=== PATIENT | female | born 1975 | race Native Hawaiian/Other Pacific Islander ===

== ENCOUNTER 2016-07-19 15:27 | Outpatient (CLI) | payer OTHER | END 2016-07-19 22:07 | disposition home or self-care (01) | LOC: MAMMO 15:27 | DX: Z12.31 Encounter for screening mammogram for malignant neoplasm of breast (principal) | CPT/HCPCS: G0202-TC ==

== ENCOUNTER 2019-09-07 14:02 | Outpatient (CLI) | payer OTHER | END 2019-09-07 20:50 | disposition home or self-care (01) | LOC: MAMMO 14:02 | DX: Z12.31 Encounter for screening mammogram for malignant neoplasm of breast (principal) ==

== ENCOUNTER 2019-10-20 10:09 | Outpatient (CLI) | payer OTHER | END 2019-10-20 19:08 | disposition home or self-care (01) | LOC: LAB 10:09 | DX: Z20.828 Contact with and (suspected) exposure to other viral communicable diseases (principal) | CPT/HCPCS: 87635; G2023; U0002 ==

== ENCOUNTER 2020-11-22 11:04 | Outpatient (CLI) | payer OTHER | END 2020-11-22 22:43 | disposition home or self-care (01) | LOC: US 11:04 | PROVIDERS: ATTEND Family Medicine | DX: M70.22 Olecranon bursitis, left elbow (principal); M77.8 Other enthesopathies, not elsewhere classified ==

== ENCOUNTER 2022-01-26 14:35 | Outpatient (CLI) | payer OTHER | END 2022-01-26 18:59 | disposition home or self-care (01) | LOC: MAMMO 14:35 | PROVIDERS: ATTEND Internal Medicine | DX: Z12.31 Encounter for screening mammogram for malignant neoplasm of breast (principal) ==